=== PATIENT | female | born 1995 | race American Indian/Alaskan Native ===

== ENCOUNTER 2019-01-14 18:22 | Emergency (ER) | payer SELFPAY ==
[2019-01-14 18:45] VITALS: BP 141/88
--- NOTE | 2019-01-14 18:48 | Emergency Department Report ---
Chief Complaint: Abdominal Pain Stated Complaint: ABD PAIN/BACK PAIN - HPI History of Present Illness: PT CO ABD PAIN AND SENSATION THAT SHE HAS TO URINATE AFTER SHE HAS JUST VOIDED NO FEVER NO CONCERN STI LMP 2 W AGO PMH DM MSE COMPLETED - Exam Vital Signs: Vital Signs 01/14/19 18:44 Temperature 98.3 F Pulse Rate 100 H Respiratory 16 Rate Blood Pressure 141/88 O2 Sat by Pulse 100 Oximetry MSE screening note: Focused history and physical exam performed. Due to findings the following was ordered: ED Disposition for MSE Condition: Stable Instructions: Abdominal Pain (ED)
[2019-01-14 19:40] LABS: BUN/Creatinine Ratio 14; Blood Urea Nitrogen 7 mg/dL (7-17); Calcium 9.8 mg/dL (8.4-10.2); Hematocrit 36.4 % (30.3-42.9); Hemoglobin 11.6 gm/dl (10.1-14.3); Hemolysis Index 12; Mean Corpuscular HGB Conc 32 % (30-34); Mean Corpuscular Volume 76 fl (79-97); Platelet Count 319 K/mm3 (140-440); Red Blood Count 4.78 M/mm3 (3.65-5.03); Red Cell Distribution Width 14.8 % (13.2-15.2)
[2019-01-14 19:48] LABS: Bilirubin,Urine NEG (Negative); Blood,Urine SM (Negative); Color,Urine Straw (Yellow); Mucus,Urine FEW /HPF; Urobilinogen,Urine < 2.0 mg/dL (<2.0)
[2019-01-14 19:54] LABS: HCG Qualitative,Urine Negative (Negative)
== END 2019-01-15 | disposition left against medical advice (07) ==
LOC: ED 18:22
DX: R10.9 Unspecified abdominal pain (principal); E11.9 Type 2 diabetes mellitus without complications
CPT/HCPCS: 36415; 80048; 81001; 81025; 85027; 99283